=== PATIENT | female | born 1945 | race Caucasian/White ===

== ENCOUNTER 2021-06-23 06:45 | Outpatient (REF) | payer OTHER, SELFPAY ==
[2021-06-23 07:16] LABS: Imm Gran Abs Auto 0.03 X10*3/uL (0.00-0.03); Imm Gran Pct Auto 0.6 % (0.0-0.4); MANUAL DIFF FLAG SCAN; PLT CLUMP 1; SCAN SMEAR FLAG 1
[2021-06-23 07:18] LABS: Basophils Percent Auto 0.2 % (0-2); Eosinophils Percent Auto 0.6 % (0-4); Lymphocytes Absolute Auto 1.2 X10*3/uL (1.2-4.9); Lymphocytes Percent Auto 24.2 % (20-40); Mean Corpuscular HGB Conc 32.4 g/dl (31.0-35.0); Mean Corpuscular Hemoglobin 25.2 pg (27.0-33.0); Mean Corpuscular Volume 77.8 fL (80.0-98.0); Mean Platelet Volume 10.5 fL (9.4-12.3); Monocytes Absolute Auto 0.5 X10*3/uL (0.1-1.2); Monocytes Percent Auto 9.9 % (2-11); Neutrophils Absolute Auto 3.3 x10*3/uL (2.0-8.3); Neutrophils Percent Auto 64.5 % (45-73); Red Cell Distribution Width 14.6 % (11.0-16.0)
[2021-06-23 07:42] LABS: Alanine Aminotransferase < 6 U/L (0-31); Albumin Level 2.6 g/dL (3.5-5.0); Alkaline Phosphatase 42 U/L (39-117); Anion Gap 9 (12-20); Aspartate Amino Transferase 34 U/L (5-31); Bilirubin Total 0.5 mg/dL (0.0-1.0); Blood Urea Nitrogen 12 mg/dL (9-16); Calcium 7.9 mg/dL (8.4-10.2); Carbon Dioxide 29 mmol/L (22-29); Chloride 104 mmol/L (96-108); Estimated Glomerular Filt Rate > 60; Glucose Fasting 83 mg/dL (60-99); Sodium 138 mmol/L (135-145); Total Protein 4.7 g/dL (6.5-8.0)
[2021-06-23 09:04] LABS: Hemoglobin 5.8 g/dl (12.0-16.0)
[2021-06-23 09:05] LABS: Hematocrit 17.9 % (37.0-47.0); Platelet Count 140 X10*3/uL (160-400)
[2021-06-23 09:09] LABS: SLIDE REVIEW VERIFIED
== END 2021-06-23 06:46 | disposition home or self-care (01) ==
LOC: HO.MMNH1L 06:45
PROVIDERS: Visit Provider Family Medicine
DX: T14.8XXA Other injury of unspecified body region, initial encounter (principal); Z91.81 History of falling
CPT/HCPCS: 36415; 80053; 85025

== ENCOUNTER 2021-06-26 00:15 | Outpatient (REF) | payer OTHER, SELFPAY | END 2021-06-26 00:16 | disposition home or self-care (01) | LOC: HO.MMNH1L 00:15 | PROVIDERS: Visit Provider Family Medicine | DX: Z13.89 Encounter for screening for other disorder (principal) ==

== ENCOUNTER 2021-06-27 | Outpatient (REF) | payer OTHER, SELFPAY ==
[2021-06-27 09:14] LABS: MANUAL DIFF FLAG NO
[2021-06-27 09:35] LABS: Basophils Percent Auto 0.2 % (0-2); Eosinophils Absolute Auto 0.1 X10*3/uL (0.0-0.4); Eosinophils Percent Auto 1.7 % (0-4); Hematocrit 22.8 % (37.0-47.0); Hemoglobin 7.1 g/dl (12.0-16.0); Imm Gran Abs Auto 0.07 X10*3/uL (0.00-0.03); Imm Gran Pct Auto 1.2 % (0.0-0.4); Lymphocytes Absolute Auto 0.8 X10*3/uL (1.2-4.9); Lymphocytes Percent Auto 12.5 % (20-40); Mean Corpuscular HGB Conc 31.1 g/dl (31.0-35.0); Mean Corpuscular Hemoglobin 25.7 pg (27.0-33.0); Mean Corpuscular Volume 82.6 fL (80.0-98.0); Mean Platelet Volume 9.9 fL (9.4-12.3); Monocytes Absolute Auto 1.1 X10*3/uL (0.1-1.2); Monocytes Percent Auto 18.5 % (2-11); Neutrophils Percent Auto 65.9 % (45-73); Platelet Count 254 X10*3/uL (160-400); Red Blood Count 2.76 X10*6/uL (4.20-5.50); Red Cell Distribution Width 17.2 % (11.0-16.0); White Blood Count 6.1 X10*3/uL (4.8-10.8)
[2021-06-27 09:41] LABS: Alanine Aminotransferase 10 U/L (0-31); Albumin Level 2.9 g/dL (3.5-5.0); Alkaline Phosphatase 52 U/L (39-117); Anion Gap 9 (12-20); Aspartate Amino Transferase 42 U/L (5-31); Bilirubin Total 0.4 mg/dL (0.0-1.0); Blood Urea Nitrogen 11 mg/dL (9-16); Calcium 8.6 mg/dL (8.4-10.2); Carbon Dioxide 30 mmol/L (22-29); Chloride 100 mmol/L (96-108); Estimated Glomerular Filt Rate > 60; Glucose Random 91 mg/dL (60-115); Potassium 4.3 mmol/L (3.3-5.1); Sodium 135 mmol/L (135-145); Total Protein 5.6 g/dL (6.5-8.0)
== END 2021-06-27 00:01 ==
LOC: HO.MMNH1L
PROVIDERS: Visit Provider Family Medicine
DX: I48.91 Unspecified atrial fibrillation (principal); I10 Essential (primary) hypertension
CPT/HCPCS: 36415; 80053; 85025

== ENCOUNTER 2021-07-03 00:57 | Outpatient (REF) | payer OTHER, SELFPAY ==
[2021-07-03 07:11] LABS: Hematocrit 24.3 % (37.0-47.0); Hemoglobin 7.3 g/dl (12.0-16.0); Mean Corpuscular Hemoglobin 25.5 pg (27.0-33.0); Mean Platelet Volume 9.9 fL (9.4-12.3); Platelet Count 280 X10*3/uL (160-400); Red Blood Count 2.86 X10*6/uL (4.20-5.50); Red Cell Distribution Width 17.4 % (11.0-16.0); White Blood Count 4.7 X10*3/uL (4.8-10.8)
[2021-07-03 07:38] LABS: Anion Gap 9 (12-20); Blood Urea Nitrogen 18 mg/dL (9-16); Calcium 9.2 mg/dL (8.4-10.2); Carbon Dioxide 31 mmol/L (22-29); Chloride 106 mmol/L (96-108); Estimated Glomerular Filt Rate > 60; Glucose Random 73 mg/dL (60-115); Potassium 4.2 mmol/L (3.3-5.1); Sodium 142 mmol/L (135-145)
== END 2021-07-03 00:58 | disposition home or self-care (01) ==
LOC: HO.MMNH1L 00:57
PROVIDERS: Visit Provider Family Medicine
DX: M84.40XD Pathological fracture, unspecified site, subsequent encounter for fracture with routine healing (principal); Z91.81 History of falling
CPT/HCPCS: 36415; 80048; 85027

== ENCOUNTER 2021-07-10 | Outpatient (REF) | payer OTHER, SELFPAY ==
[2021-07-10 07:57] LABS: Hemoglobin 7.8 g/dl (12.0-16.0); Mean Corpuscular Hemoglobin 25.2 pg (27.0-33.0); Mean Corpuscular Volume 83.9 fL (80.0-98.0); Mean Platelet Volume 11.5 fL (9.4-12.3); Platelet Count 207 X10*3/uL (160-400); White Blood Count 3.4 X10*3/uL (4.8-10.8)
[2021-07-10 08:28] LABS: Alanine Aminotransferase 12 U/L (0-31); Albumin Level 3.3 g/dL (3.5-5.0); Alkaline Phosphatase 66 U/L (39-117); Anion Gap 11 (12-20); Aspartate Amino Transferase 38 U/L (5-31); Bilirubin Total 0.4 mg/dL (0.0-1.0); Blood Urea Nitrogen 18 mg/dL (9-16); Calcium 9.3 mg/dL (8.4-10.2); Carbon Dioxide 29 mmol/L (22-29); Chloride 107 mmol/L (96-108); Estimated Glomerular Filt Rate > 60; Glucose Random 77 mg/dL (60-115); Potassium 3.8 mmol/L (3.3-5.1); Sodium 143 mmol/L (135-145); Total Protein 6.4 g/dL (6.5-8.0)
== END 2021-07-10 00:01 | disposition home or self-care (01) ==
LOC: HO.MMNH1L
PROVIDERS: Visit Provider Family Medicine
DX: M84.40XD Pathological fracture, unspecified site, subsequent encounter for fracture with routine healing (principal); Z91.81 History of falling
CPT/HCPCS: 36415; 80053; 85027

== ENCOUNTER 2021-07-17 01:12 | Outpatient (REF) | payer OTHER, SELFPAY ==
[2021-07-17 06:49] LABS: Hematocrit 26.3 % (37.0-47.0); Mean Corpuscular HGB Conc 30.4 g/dl (31.0-35.0); Mean Corpuscular Hemoglobin 25.8 pg (27.0-33.0); Mean Corpuscular Volume 84.8 fL (80.0-98.0); Mean Platelet Volume 11.3 fL (9.4-12.3); Platelet Count 152 X10*3/uL (160-400); Red Cell Distribution Width 15.6 % (11.0-16.0); White Blood Count 3.5 X10*3/uL (4.8-10.8)
[2021-07-17 07:39] LABS: Anion Gap 14 (12-20); Blood Urea Nitrogen 16 mg/dL (9-16); Carbon Dioxide 27 mmol/L (22-29); Chloride 106 mmol/L (96-108); Estimated Glomerular Filt Rate > 60; Glucose Random 73 mg/dL (60-115); Potassium 3.7 mmol/L (3.3-5.1); Sodium 143 mmol/L (135-145)
== END 2021-07-17 01:13 | disposition home or self-care (01) ==
LOC: HO.MMNH1L 01:12
PROVIDERS: Visit Provider Family Medicine
DX: Z91.81 History of falling (principal)
CPT/HCPCS: 36415; 80048; 85027

== ENCOUNTER 2021-07-24 00:48 | Outpatient (REF) | payer OTHER, SELFPAY | END 2021-07-24 00:49 | disposition home or self-care (01) | LOC: HO.MMNH1L 00:48 | PROVIDERS: Visit Provider Family Medicine | DX: Z13.89 Encounter for screening for other disorder (principal) ==